=== PATIENT | male | born 2000 | race Caucasian/White ===

== ENCOUNTER 2020-04-21 09:40 | Emergency (ER) | payer SELFPAY ==
--- NOTE | 2020-04-21 10:07 | RAD ---
Exam: XR Hand Rt 3 View STANDARD HISTORY: Jammed thumb last night. Patient now has right thumb pain, swelling, and numbness. COMPARISON: None FINDINGS: No acute fracture, dislocation, or other acute osseous abnormality is identified. IMPRESSION: No acute osseous abnormality is identified.
== END 2020-04-21 10:40 | disposition home or self-care (01) ==
LOC: ERS 09:40
DX: S63.601A Unspecified sprain of right thumb, initial encounter (principal); W23.0XXA Caught, crushed, jammed, or pinched between moving objects, initial encounter

== ENCOUNTER 2020-08-15 16:42 | Emergency (ER) | payer SELFPAY ==
[2020-08-15] MEDS ORDERED: Dexamethasone 4 mg/ml Vial ONE (18:31)
[2020-08-15] MEDS ORDERED: Morphine 4 MG/ML VIAL ONE (18:31)
[2020-08-15] MEDS ORDERED: Ketorolac Tromethamine 30 MG/ML VIAL ONE (18:31)
[2020-08-15] MEDS ORDERED: Diazepam 5 MG TAB ONE (18:31)
== END 2020-08-15 19:30 | disposition home or self-care (01) ==
LOC: ERS 16:42
DX: M54.9 Dorsalgia, unspecified (principal); F17.290 Nicotine dependence, other tobacco product, uncomplicated
CPT/HCPCS: 96372; 99283; J1100; J1885; J2270